=== PATIENT | male | born 1980 | race Caucasian/White ===

== ENCOUNTER 2018-02-12 06:53 | Day surgery (SDC) | payer BC ==
[2018-02-09 08:18] LABS: BASOPHILS % (AUTO) 0.8 % (0.0-2.0); EOSINOPHILS # (AUTO) 0.1 K/uL (0.0-0.4); EOSINOPHILS % (AUTO) 2.7 % (0.0-4.0); HEMATOCRIT 43.8 % (36-54); HEMOGLOBIN 14.2 g/dL (14.0-18.0); LYMPHOCYTES # (AUTO) 1.4 K/uL (1.0-5.5); LYMPHOCYTES % (AUTO) 36.5 % (20.5-51.5); MEAN CORPUSCULAR HEMOGLOBIN 29 pg (27-31); MEAN CORPUSCULAR HGB CONC 33 % (32-36); MEAN CORPUSCULAR VOLUME 88 fL (79.0-98.0); MONOCYTES # (AUTO) 0.4 K/uL (0.0-1.0); MONOCYTES % (AUTO) 10.8 % (1.7-9.3); NEUTROPHILS % (AUTO) 49.2 % (40.0-70.0); PLATELET COUNT (AUTO) 219 K/uL (130-430); RED CELL DISTRIBUTION WIDTH 12.6 % (9.0-15.0); WHITE BLOOD COUNT (AUTO) 3.9 K/uL (4.8-10.8)
[2018-02-09 08:34] LABS: PROTHROMBIN TIME 10.2 SECS (9.5-12.5)
[2018-02-09 09:01] LABS: ALBUMIN 4.1 g/dL (3.4-4.8); CALCIUM 9.6 mg/dL (8.4-11.0); CREATININE 1.03 mg/dL (0.55-1.30); POTASSIUM 4.9 mmol/L (3.5-5.1); TOTAL BILIRUBIN 0.6 mg/dL (0.0-1.0)
[~2018-02-12] VITALS: Ht 175.3 cm; Wt 72.6 kg
[2018-02-12] MEDS ORDERED: CEFAZOLIN SOD 2 GM in D5W 50 ML IV ONE (07:15)
[2018-02-12] MEDS ORDERED: KETOROLAC TROMETHAMINE 30 MG VIAL IVP PRN (09:00)
[2018-02-12] MEDS ORDERED: ONDANSETRON HCL 4 MG/2 ML VIAL IVP PRN (09:00)
[2018-02-12] MEDS ORDERED: fentaNYL CITRATE/PF 100 MCG/2 ML AMP IVP PRN ×2 (09:00)
[2018-02-12] MEDS ORDERED: ROCURONIUM BROMIDE 10 MG/ML (ZEMURON) IV ONE (09:15)
[2018-02-12] MEDS ORDERED: PROPOFOL 200MG/ 20ML VIAL (DIPRIVAN) IV ONE (09:15)
[2018-02-12] MEDS ORDERED: LR 1,000 ML IV.SOLN IV ONE (09:15)
[2018-02-12] MEDS ORDERED: MIDAZOLAM HCL 5 MG/5 ML VIAL IVP ONE (09:15)
[2018-02-12] MEDS ORDERED: fentaNYL CITRATE/PF 100 MCG/2 ML AMP IVP ONE (09:15)
[2018-02-12] MEDS ORDERED: NS IRRIG SOLN 1000 ML IR ONE (09:15)
[2018-02-12] MEDS ORDERED: LIDOCAINE 2%, 20 ML MDV INJ ONE (09:15)
[2018-02-12] MEDS ORDERED: BUPIVACAINE /PF 0.5% 30 ML VIAL INJ ONE (09:15)
[2018-02-12] MEDS ORDERED: SEVOFLURANE 15 MIN GAS INH ONE (09:15)
[2018-02-12] MEDS ORDERED: POLYMYXIN 500,000/BACIT.10,000 UNITS in NS IRR 1 L IR ONE (10:38)
[2018-02-12 13:16] VITALS: BP_SYST 119
== END 2018-02-12 17:30 | disposition home or self-care (01) ==
LOC: SMU 06:53 → SDS 06:53
PROVIDERS: ATTEND Surgery
DX: K40.90 Unilateral inguinal hernia, without obstruction or gangrene, not specified as recurrent (principal)
CPT/HCPCS: 36415; 80053; 85025; 85610-TC; 85730-TC; 88302; C1781; J0690; J2001; J2250; J2704; J3010; J3490; J7060; J7120